=== PATIENT | female | born 1950 | race Native Hawaiian/Other Pacific Islander ===

== ENCOUNTER → 2017-07-26 | Outpatient (CLI) | payer OTHER, MEDICAID ==
[~2017-07-26] MED LIST: ALLOPURINOL 10100 M1 PO; COLCHICINE0.6 MG PO; COMBIVENT INH; ECOTRIN325 MG PO; HYDROXYZINE HCL10 M1 PO; HYDROXYZINE HCL25 M1 PO; INDOMETHACIN 2525 MG PO; LASIX 40 MG TAB40 M2 PO; LIPITOR 20 MG T20 M1 PO; LISINOPRIL20 MG PO; METFORMIN HCL500 MG PO; PROZAC10 MG PO; PROZAC20 MG PO; TOPAMAX 25 MG T25 M1 PO
== END ==
LOC: M.CT 07-19 08:27
DX: I70.0 Atherosclerosis of aorta (principal); I73.9 Peripheral vascular disease, unspecified; K43.9 Ventral hernia without obstruction or gangrene

== ENCOUNTER 2017-08-09 15:20 | Inpatient (IN) | payer OTHER, MEDICAID ==
[~2017-08-09] VITALS: Ht 172.7 cm; Wt 164.2 kg
[2017-08-09 15:25] VITALS: BP 140/84
[2017-08-09] MEDS ORDERED: COMBIVENT INH (15:35)
[2017-08-09] MEDS ORDERED: LISINOPRIL20 MG PO (15:36)
[2017-08-09] MEDS ORDERED: LASIX 40 MG TAB40 M2 PO (15:36)
[2017-08-09] MEDS ORDERED: ALLOPURINOL 10100 M1 PO (15:36)
[2017-08-09] MEDS ORDERED: INDOMETHACIN 2525 MG PO (15:37)
[2017-08-09] MEDS ORDERED: COLCHICINE0.6 MG PO (15:37)
[2017-08-09] MEDS ORDERED: PROZAC10 MG PO (15:38)
[2017-08-09] MEDS ORDERED: ECOTRIN325 MG PO (15:38)
[2017-08-09] MEDS ORDERED: PROZAC20 MG PO (15:38)
[2017-08-09] MEDS ORDERED: TOPAMAX 25 MG T25 M1 PO (15:39)
[2017-08-09] MEDS ORDERED: HYDROXYZINE HCL10 M1 PO (15:39)
[2017-08-09] MEDS ORDERED: METFORMIN HCL500 MG PO (15:40)
[2017-08-09 16:03] LABS: ABSOLUTE BASOPHILS 0.1 thou/uL (0.0-0.2); ABSOLUTE EOSINOPHILS 0.2 thou/uL (0.0-0.7); ABSOLUTE LYMPHOCYTES 2.6 thou/uL (0.8-5.3); ABSOLUTE MONOCYTES 0.9 thou/uL (0.0-1.2); ABSOLUTE NEUTROPHILS 5.5 thou/uL (1.6-8.1); BASOPHILS 0.9 %; EOSINOPHILS 1.8 %; HEMATOCRIT 43.5 % (37.0-47.0); MCH 32.2 pg (26.0-34.0); MCHC 34.4 g/dL (28.0-37.0); MCV 93.6 fL (80.0-100.0); MONOCYTES 10.1 %; MPV 7.7 fl. (7.2-11.1); NUCLEATED RBCS 0 /100WBC; PLATELET COUNT* 231 thou/uL (150-400); POLYS 59.2 %; RBC 4.64 mil/uL (4.20-5.00); RDW-CV 13.9 % (10.5-14.5); WBC 9.3 thou/uL (4.0-11.0)
[2017-08-09 16:14] LABS: ANION GAP 11 mmol/L (7-16); BUN 17 mg/dL (7-18); CALCIUM 8.9 mg/dL (8.5-10.1); CHLORIDE 104 mmol/L (98-107); CO2 23 mmol/L (21-32); CREATININE 1.4 mg/dL (0.6-1.3); GLUCOSE 75 mg/dL (70-99); POTASSIUM 3.7 mmol/L (3.5-5.1); SODIUM 138 mmol/L (136-145)
[2017-08-09 16:14] LABS: APTT 28.8 Seconds (25.0-31.3); INR 1.1; PROTIME 10.3 Seconds (9.20-11.50)
[2017-08-09 16:36] LABS: ALBUMIN 3.4 g/dL (3.4-5.0); ALKALINE PHOSPHATASE 55 U/L (46-116); CK-MB MASS 1.9 ng/mL (<0.5-3.6); LIPASE 134 U/L (73-393); NT-PRO BRAIN NAT PEPTIDE 158 pg/mL (<300); SGOT 20 U/L (15-37); SGPT 26 U/L (30-65); TOTAL BILIRUBIN 0.4 mg/dL (<0.1-1.0); TOTAL PROTEIN 7.5 g/dL (6.4-8.2); TROPONIN-I LEVEL <0.06 ng/mL (<0.06)
[2017-08-09 20:51] VITALS: BP 126/68
--- NOTE | 2017-08-09 20:54 | NUR ---
PATIENT ARRIVES TO UNIT VIA CART TRANSFER OF 1 NS INFUSING WIDE OPEN PATIENT IS AMBULATORY ABLE TO TRANSFER TO BED WITH STANDBY ASSIST.
[2017-08-09 21:00] VITALS: BP 137/79
[2017-08-10] VITALS (7 sets, daily range): BP systolic 96–141; BP diastolic 59–73
--- NOTE | 2017-08-10 06:12 | NUR ---
ASSUMED CARE OF PATIENT AT 2100 THE PATIENT REMAINS SR-SB LOW 50'S TO 60'S ON THE MONITOR O2 SAT MAINTAINED ON 2L NC NOT UTILIZED AT HOME CONTINUED TO BE UP WITH STANDBY ASSIST OF 1 ET CANE WHILE FLUIDS INFUSED UPON COMPLETION OF FLUIDS UP BRP STEADY WITH CANE MEDICATIONS RECONCILED NIGHT UNEVENTFUL PATIENT RESTED WELL DENYING PAIN OR CONCERNS SAFETY INTERVENTIONS CONTINUE BED LOWERED WHEELS LOCKED CALL LIGHT IN REACH SIDE RAILS UP REPORT TO BE GIVEN TO ONCOMING ALEJANDRA
--- NOTE | 2017-08-10 08:00 | NUR ---
ASSUMED CARE OF PT ASSESSED AND DOCUMENTED. PT IS ON CARDIAC MONITER TRACING SR. SHE IS A&O WITH NO C/O PAIN. PT IS ON ROOM AIR WITH CLEAR LUNGS. BED IS IN LOW POSITION CALL LIGHT IS IN REACH. WM.
--- NOTE | 2017-08-10 10:11 | EKG ---
[place] [address] ELECTROCARDIOGRAM REPORT Name: MARTINE SHEN Room: [address] IN [facility].#: [id number] Admission: 08/09/17 Attend Phys: Laly Ackerman MD Discharge: 08/10/17 Date of : 52 Report #: [id number] THIS REPORT FOR: //name// [facility] ED Test Date: 2017-08-09 Test Time: 15:30:01 Pat Name: MARTINE LINTON Department: Room: Gender: F Scorer Single: Ron GILMORE : 1950 Requested By: Gideon Graham Order Number: [id number] : Mamadou Kimbrough Measurements Intervals [place] Rate: 75 P: 38 [place]: 177 QRS: 39 QRSD: 96 T: 30 QT: 377 QTc: 421 Interpretive Statements Sinus rhythm Baseline wander in lead(s) V1 No previous ECG available for comparison Electronically Signed On 08-10-2017 10:11:34 CDT by Mamadou Kimbrough [email or web address] <ELECTRONICALLY SIGNED> By: Gracie Kimbrough MD, [facility] 08/10/17 1011 1530 1530 Gracie Kimbrough MD, [facility] /EPI
--- NOTE | 2017-08-10 10:12 | EKG ---
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
--- NOTE | 2017-08-10 18:27 | NUR ---
PT HAS BEEN D/C'D TO HOME. ALL CONSULTS OK WITH D/C. D/C'D IV AND CARDIAC MONITER. EDUCATION GIVEN RE FOLLOW-UPS. MEDICATIONS, AND DR ORDERS. ALL BELONGINGS PACKED UP AND LEFT WITH PT ACCOMPANIED BY STAFF AND SON.
== END 2017-08-10 18:35 | disposition still patient (30) | DRG 189 ==
LOC: M.ERS 15:20 → M.2W 19:58 → M.TBA-ER 19:58 → M.2W 19:58
PROVIDERS: Emergency Medicine; ADMIT Internal Medicine
DX: J96.01 Acute respiratory failure with hypoxia (principal); R07.89 Other chest pain; I10 Essential (primary) hypertension; Z98.891 History of uterine scar from previous surgery; M10.9 Gout, unspecified; E11.9 Type 2 diabetes mellitus without complications; G47.33 Obstructive sleep apnea (adult) (pediatric); F41.9 Anxiety disorder, unspecified; Z79.899 Other long term (current) drug therapy; Z79.82 Long term (current) use of aspirin; Z79.4 Long term (current) use of insulin; Z88.8 Allergy status to other drugs, medicaments and biological substances; Z88.0 Allergy status to penicillin; Z91.041 Radiographic dye allergy status

== ENCOUNTER 2017-10-31 07:37 | Outpatient (CLI) | payer OTHER, MEDICAID ==
[2017-10-31] VITALS (9 sets, daily range): BP systolic 101–122; BP diastolic 59–76
[~2017-10-31] VITALS: Ht 172.7 cm; Wt 136.1 kg
[~2017-10-31 07:37] MED LIST changes: -HYDROXYZINE HCL25 M1 PO; -LIPITOR 20 MG T20 M1 PO
[2017-10-31 08:47] LABS: ANION GAP 11 mmol/L (7-16); BUN 16 mg/dL (7-18); CALCIUM 9.2 mg/dL (8.5-10.1); CHLORIDE 105 mmol/L (98-107); CO2 25 mmol/L (21-32); CREATININE 1.1 mg/dL (0.6-1.3); GLUCOSE 116 mg/dL (70-99); POTASSIUM 3.8 mmol/L (3.5-5.1); SODIUM 141 mmol/L (136-145)
[2017-10-31 08:51] LABS: ALBUMIN 3.2 g/dL (3.4-5.0); ALKALINE PHOSPHATASE 61 U/L (46-116); CHOLESTEROL 129 mg/dL (<200); HDL CHOLESTEROL 55 mg/dL (>40); LDL CHOLESTEROL 49 mg/dL (<100); SERUM ASSESSMENT Clear; SGOT 20 U/L (15-37); SGPT 24 U/L (30-65); TC:HDL 2.3 Ratio (Not establshd); TOTAL BILIRUBIN 0.5 mg/dL (<0.1-1.0); TOTAL PROTEIN 7.7 g/dL (6.4-8.2); TRIGLYCERIDE 127 mg/dL (<150); VLDL 25 mg/dL (<40)
[2017-10-31] MEDS ORDERED: COMBIVENT INH (08:57)
[2017-10-31] MEDS ORDERED: METFORMIN HCL500 MG PO (08:58)
[2017-10-31] MEDS ORDERED: ECOTRIN325 MG PO (08:58)
[2017-10-31] MEDS ORDERED: LASIX 40 MG TAB40 M2 PO (08:58)
[2017-10-31] MEDS ORDERED: PROZAC20 MG PO (08:59)
[2017-10-31] MEDS ORDERED: TOPAMAX 25 MG T25 M1 PO (08:59)
[2017-10-31] MEDS ORDERED: ALLOPURINOL 10100 M1 PO (09:00)
[2017-10-31] MEDS ORDERED: LISINOPRIL20 MG PO (09:00)
[2017-10-31 09:01] LABS: HEMATOCRIT 43.5 % (37.0-47.0); HEMOGLOBIN 14.6 gm/dL (12.0-15.0); MCH 31.6 pg (26.0-34.0); MCHC 33.5 g/dL (28.0-37.0); MCV 94.3 fL (80.0-100.0); MPV 7.7 fl. (7.2-11.1); RBC 4.62 mil/uL (4.20-5.00); RDW-CV 14.1 % (10.5-14.5); WBC 9.3 thou/uL (4.0-11.0)
[2017-10-31] MEDS ORDERED: HYDROXYZINE HCL25 M1 PO (09:02)
[2017-10-31] MEDS ORDERED: LIPITOR 20 MG T20 M1 PO (09:02)
[2017-10-31] MEDS ORDERED: INDOMETHACIN 2525 MG PO (09:02)
[2017-10-31] MEDS ORDERED: COLCHICINE0.6 MG PO (09:03)
[2017-10-31 09:08] LABS: APTT 29.2 Seconds (25.0-31.3); PROTIME 10.1 Seconds (9.20-11.50)
--- NOTE | 2017-10-31 15:22 | EKG ---
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
--- NOTE | 2017-11-01 10:37 | CARD ---
[address] [address] CARDIAC CATH REPORT Name: MARTINE SHEN [address] [id number] Admission: 10/31/17 Attend Phys: Warner Dunaway MD Discharge: Date of : 52 Report #: [id number] THIS REPORT FOR: //name// APPROVED REPORT Study performed: 10/31/2017 09:04:21 Patient Details Patient Status: Out-Patient Room #: The patient is a 67 year-old female Event Personnel Gary Benz Logistics Officer, Catarina Prado RN Internal Carver, Ethan Nevarez (R) Monitor, Velia Masters RTR Scrub Procedures Performed Art Access - R femoral artery* Left Heart Cath w/or w/o Coronaries [id number] [facility] , Left Ventriculogram Indication Positive stress test Risk Factors Obesity, Hypercholesterolemia Procedure Narrative The patient was brought electively to the Cardiac Catheterization Laboratory and was prepped and draped in a sterile manner. The right femoral was infiltrated with 2% Lidocaine subcutaneous anesthesia. A Lyman 6 FR sheath was inserted into the right femoral artery. Coronary angiography was performed using coronary diagnostic catheters. The right coronary system was accessed and visualized with a Diagnostic 6fr JR 4 catheter. The left coronary system was accessed and visualized with a Diagnostic 6fr JL 4 catheter. The left ventricle was accessed and visualized with a Diagnostic 6fr Pigtail catheter. Left ventricular/Aortic Valve gradient assessed via catheter pullback. Left ventriculogram was performed in HENLEY projection. Pre-demployment femoral angiogram was performed . Closure device was deployed with a 6 Fr Angioseal STS 6Fr. Intraoperative Conscious Sedation Sedation start time: 09:55 Case end Time: 11:10 Fentanyl 100 mcg Vers[place] 2 [place] [address] CARDIAC CATH REPORT Name: MILTON ROYERMARTINE Room: [address]#: [id number] Admission: 10/31/17 Attend Phys: Warner Dunaway MD Discharge: Date of : 52 Report #: [id number] Fluoro Time: 7.1 minutes Dose: DAP [id number] cGycm2 1457.11 mGy Contrast Type and Amount: Visipaque 110 ml Coronary Angiography The patient's coronary anatomy is right dominant. Diagnostic Cath Left Main 0% narrowing LAD Aneurysmal dilatation of the proximal and mid LAD with 0% narrowing of this vessel Circumflex Aneurysmal dilatation of the proximal and mid circumflex with 0% narrowing noted Right Coronary Large dominant vessel with aneurysmal dilatation of the proximal mid and distal portion with 0% narrowing noted Hemodynamics The aortic pressure is 100/65 mmHg with a mean of mmHg. The left ventricular pressure is 117/0 mmHg with a mean of mmHg. The left ventricular end diastolic pressure is 13 mmHg. Pullback from the left ventricle to the aorta revealed no gradient across the aortic valve. Conclusion #1 atherosclerotic coronary artery characterized by the following: A aneurysmal dilatation of the proximal and mid LAD B aneurysmal dilatation of the proximal and mid circumflex C aneurysmal dilatation the proximal mid and distal right coronary artery, this being a dominant vessel D no significant stenosis of the left main LAD circumflex and right coronary arteries #2 normal left ventricular systolic function, estimate ejection fraction being 60% #3 normal left-sided hemodynamic study. Recommendations Cardiac Risk Reduction [place] [address] CARDIAC CATH REPORT Name: MARTINE SHEN Room: [address] M[address]R.#: [id number] Admission: 10/31/17 Attend Phys: Warner Dunaway MD Discharge: Date of : 52 Report #: [id number] Diagnostic Cath Approved by: Gary Benz MD Date/Time: 11/01/17 at 1036 hrs. <ELECTRONICALLY SIGNED> By: Gary Benz MD, FACC 11/01/17 1037 1037 1037Jojonathan Benz MD, FAC /INF
--- NOTE | 2017-11-13 16:11 | H ---
[place] [address] HISTORY AND PHYSICAL Name: MILTON LINTONMARTINE Lauren Room: [facility] You#: [id number] Admission: 10/31/17 Attend Phys: Warner Dunaway MD Discharge: 10/31/17 Date of : 52 Report #: [id number] THIS REPORT FOR: //name// CC: Warner Craig DATE OF SERVICE: 10/31/2017 HISTORY OF PRESENT ILLNESS: The patient is a pleasant middle-aged female with dyspnea on exertion. She has a number of risk factors for coronary artery disease including dyslipidemia, diabetes, hypertension and weight excess. Recent nuclear stress test suggested inducible lateral ischemia. MEDICINES: Have included aspirin, allopurinol, atorvastatin, colchicine, fluoxetine, furosemide, hydroxyzine, indomethacin, Combivent, lisinopril and metformin. PHYSICAL EXAMINATION: GENERAL: Demonstrates an overweight, middle-aged female. VITAL SIGNS: Blood pressure is 130/85, pulse rate is 74, respirations are 18 per minute. CHEST: Clear. CARDIOVASCULAR: Reveals normal first and second heart sounds. ABDOMEN: Obese. EXTREMITIES: Reveal mild edema with intact pulses. IMPRESSION: 1. Dyspnea on exertion. 2. Abnormal nuclear stress test. 3. Hypertension. 4. Hyperlipidemia. 5. Exogenous obesity. 6. Type 2 diabetes. RECOMMENDATIONS: Given the aforementioned dyspnea on exertion, the risk factor profile and abnormal stress test, I would recommend proceeding with cardiac catheterization to define current coronary anatomy and prospects for subsequent therapy. <ELECTRONICALLY SIGNED> By: Gary Benz MD, FACC 11/13/17 1611 1359 1551Jojonathan Benz MD, FAC /nt
== END 2017-10-31 15:52 | disposition home or self-care (01) ==
LOC: M.CL 07:37 → M.TBA-CV 11:29 → M.CL 15:52
PROVIDERS: Internal Medicine; Internal Medicine Cardiovascular Disease
DX: I25.10 Atherosclerotic heart disease of native coronary artery without angina pectoris (principal); I10 Essential (primary) hypertension; E78.00 Pure hypercholesterolemia, unspecified; M10.9 Gout, unspecified; F32.9 Major depressive disorder, single episode, unspecified; F41.9 Anxiety disorder, unspecified; E66.09 Other obesity due to excess calories; Z87.442 Personal history of urinary calculi; Z98.890 Other specified postprocedural states; Z79.899 Other long term (current) drug therapy; Z88.0 Allergy status to penicillin; Z91.041 Radiographic dye allergy status; Z88.8 Allergy status to other drugs, medicaments and biological substances; Z79.82 Long term (current) use of aspirin; Z79.01 Long term (current) use of anticoagulants

== ENCOUNTER → 2018-05-16 | Outpatient (CLI) | payer OTHER, MEDICAID ==
[~2018-05-16] MED LIST changes: +HYDROXYZINE HCL25 M1 PO; +LIPITOR 20 MG T20 M1 PO
[2018-05-16 13:05] LABS: CHOLESTEROL 123 mg/dL (<200); HDL CHOLESTEROL 54 mg/dL (>40); LDL CHOLESTEROL 43 mg/dL (<100); SERUM ASSESSMENT Clear; TC:HDL 2.3 Ratio (Not establshd); TRIGLYCERIDE 132 mg/dL (<150); VLDL 26 mg/dL (<40)
== END ==
LOC: M.LAB 12:31
PROVIDERS: Internal Medicine Cardiovascular Disease
DX: E78.2 Mixed hyperlipidemia (principal)

== ENCOUNTER → 2018-05-22 | Outpatient (CLI) | payer OTHER, MEDICAID | LOC: M.RAD 08:15 | DX: Z12.31 Encounter for screening mammogram for malignant neoplasm of breast (principal); E28.39 Other primary ovarian failure; Z78.0 Asymptomatic menopausal state ==

== ENCOUNTER → 2019-02-06 | Day surgery (SDC) | payer OTHER, MEDICAID ==
[~2019-02-06] MED LIST changes: +ALLOPURINOL 30300 M1 PO; +ASA81BEC PO; +FLUOXETINE HCL20 M1 PO; +KLOR-CON 1010 MEQ PO; +MOBIC7.5 MG PO; +PLAVIX 75 MG TA75 MG PO
--- NOTE | ~2019-02-06 | PROC ---
[address] [address] PROCEDURE REPORT Name: MARTINE SHEN Room: [facility]#: [id number] Admission: 02/06/19 Attend Phys: Slade James MD Discharge: Date of : 52 Report #: [id number] THIS REPORT FOR: //name// For GI report, please see the Provation report in Perceptive 7 content. By: 0652Medical Records Staff DURGA /STEVEN
[2019-02-06 09:25] LABS: HEMATOCRIT 45.7 % (37.0-47.0); HEMOGLOBIN 15.9 gm/dL (12.0-15.0); MCH 32.2 pg (26.0-34.0); MCHC 34.7 g/dL (28.0-37.0); MCV 92.9 fL (80.0-100.0); MPV 7.2 fl. (7.2-11.1); RBC 4.92 mil/uL (4.20-5.00)
[2019-02-06 09:33] LABS: CALCIUM 9.4 mg/dL (8.5-10.1); POTASSIUM 3.7 mmol/L (3.5-5.1)
[2019-02-06 09:37] LABS: ALBUMIN 3.8 g/dL (3.4-5.0); TOTAL BILIRUBIN 0.7 mg/dL (<0.1-1.0)
--- NOTE | 2019-02-06 14:37 | EKG ---
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: : 1950 Requested By: Slade James Order Number: [id number] Reading MD: Gary Benz Measurements Intervals [place] Rate: 78 P: 5 [place]: 186 QRS: 22 QRSD: 99 T: 20 QT: 395 QTc: 450 Interpretive Statements Sinus rhythm Inferior infarct, old posssible Baseline wander in lead(s) II,III,aVR,aVF Compared to ECG 10/31/2017 09:04:01 Myocardial infarct finding now present Electronically Signed On 02-06-2019 14:37:35 CDT by Gary Benz [email or web address] <ELECTRONICALLY SIGNED> By: Gary Benz MD, [facility] 02/06/19 1437 0 0 Gary Benz MD, [facility] /EPI
--- NOTE | 2019-02-11 13:07 | PATH ---
[facility] [address] [place] [address] PATHOLOGY RPT PROCEDURE Name: MARTINE SHEN [id number] Admission: 02/06/19 Date of : 52 Discharge: Report #: [id number] Path Case #: [id number] [facility] Accession Number: [id number] . 01 Material submitted: . PART A: stomach - GASTRIC BIOPSY PART B: cecum - CECAL POLYP . 01 Clinical history: . GERD, dysphacia, screening colon R/O H pyloric . 02 Diagnosis: A. Gastric biopsy: - Mild nonspecific chronic gastritis, negative for Helicobacter pylori organisms and dysplasia. . B. Cecal polyp: - Tubular adenoma, negative for high-grade dysplasia. (YORDAN:janelle; 02/10/2019) . . Special stain on A: H. pylori immuno. QMS 02/10/2019 1127 Local . 02 Electronically signed: . Bronson Lucas MD, Pathologist NPI- [id number] . 01 Gross description: . A. Received in formalin labeled "Martine Shen, gastric biopsy R/O H. pylori," is a segment of chaves-brown soft tissue measuring 0.4 x 0.3 x 0.3 cm in greatest dimensions. The specimen is submitted entirely in cassette A1. . B. Received in formalin labeled "Martine Shen, cecal polyp," is a segment of chaves-brown soft tissue measuring 0.5 x 0.3 x 0.2 cm in greatest dimensions. The specimen is submitted entirely in cassette B1. ([facility]; 02/09/2019) XDC/XDC 02/09/2019 09 Local . 02 Pathologist provided ICD-10: K29.50, D12.0 . 02 CPT . 995504, 073986, F60312 Specimen Comment: A courtesy copy of this report has been sent to [phone] Specimen Comment: [address], [place] [address] PATHOLOGY RPT PROCEDURE Name: MARTINE SHEN Room: [facility].#: [id number] Admission: 02/06/19 Date of : 52 Discharge: Report #: [id number] Path Case #: [id number] Specimen Comment: Report sent to DR Cory ALEXUS / DR PETERSEN Specimen Comment: A duplicate report has been generated due to demographic updates. Performed at: 01 [facility] [address], [place], [place] [address] MD Yvan Crystal MD Phone: [phone] Performed at: 02 [facility] [place] [address], [place], [place] [id number] MD Bronson Lucas MD Phone: [phone]
== END | disposition home or self-care (01) ==
LOC: M.SUR 08:48
PROVIDERS: Internal Medicine Gastroenterology
DX: Z12.11 Encounter for screening for malignant neoplasm of colon (principal); D12.0 Benign neoplasm of cecum; K57.30 Diverticulosis of large intestine without perforation or abscess without bleeding; K22.2 Esophageal obstruction; K25.9 Gastric ulcer, unspecified as acute or chronic, without hemorrhage or perforation; K21.9 Gastro-esophageal reflux disease without esophagitis; K29.50 Unspecified chronic gastritis without bleeding; K64.4 Residual hemorrhoidal skin tags; R13.19 Other dysphagia; K21.0 Gastro-esophageal reflux disease with esophagitis; I25.10 Atherosclerotic heart disease of native coronary artery without angina pectoris; I11.0 Hypertensive heart disease with heart failure; I50.9 Heart failure, unspecified; E11.9 Type 2 diabetes mellitus without complications; E78.5 Hyperlipidemia, unspecified; M10.9 Gout, unspecified; Z98.890 Other specified postprocedural states; Z91.041 Radiographic dye allergy status; Z88.0 Allergy status to penicillin; Z88.8 Allergy status to other drugs, medicaments and biological substances; Z79.899 Other long term (current) drug therapy; Z79.82 Long term (current) use of aspirin

== ENCOUNTER → 2019-07-06 | Outpatient (CLI) | payer OTHER, MEDICAID | LOC: M.RAD 08:29 | DX: Z12.31 Encounter for screening mammogram for malignant neoplasm of breast (principal) ==

== ENCOUNTER → 2019-10-23 | Outpatient (CLI) | payer OTHER, MEDICAID | LOC: M.ULTRA 10-16 09:00 | PROVIDERS: ATTEND Family Medicine | DX: N28.1 Cyst of kidney, acquired (principal); I10 Essential (primary) hypertension; N28.9 Disorder of kidney and ureter, unspecified ==

== ENCOUNTER → 2020-01-14 | Outpatient (CLI) | payer OTHER, MEDICAID | LOC: M.NUC 07:23 | PROVIDERS: ATTEND Nurse Practitioner Adult Health | DX: R10.13 Epigastric pain (principal); R68.81 Early satiety ==

== ENCOUNTER → 2020-01-20 | Outpatient (CLI) | payer OTHER, MEDICAID | LOC: M.LAB 10:05 | PROVIDERS: ATTEND Internal Medicine Gastroenterology | DX: Z01.812 Encounter for preprocedural laboratory examination (principal); Z20.828 Contact with and (suspected) exposure to other viral communicable diseases; K20.80 Other esophagitis without bleeding ==

== ENCOUNTER → 2020-01-25 | Day surgery (SDC) | payer OTHER, MEDICAID ==
--- NOTE | ~2020-01-25 | PROC ---
[address] [address] PROCEDURE REPORT Name: MARTINE SHEN Room: [facility].#: [id number] Admission: 01/25/20 Attend Phys: Slade James MD Discharge: Date of : 52 Report #: [id number] THIS REPORT FOR: //name// cc: Anup Craig Vincent R. DO ~ THIS REPORT FOR: //name// For GI report, please see the Provation report in Perceptive 7 content. By: 0652Medical Records Staff DURGA /STEVEN
[2020-01-25 08:38] LABS: HEMOGLOBIN 15.1 gm/dL (12.0-15.0); MCH 31.3 pg (26.0-34.0); MCHC 33.4 g/dL (28.0-37.0); MCV 93.5 fL (80.0-100.0); MPV 7.5 fl. (7.2-11.1); RBC 4.81 mil/uL (4.20-5.00); RDW-CV 14.4 % (10.5-14.5); WBC 8.3 thou/uL (4.0-11.0)
[2020-01-25 08:45] LABS: CALCIUM 9.3 mg/dL (8.5-10.1); POTASSIUM 3.6 mmol/L (3.5-5.1)
--- NOTE | 2020-01-25 09:58 | EKG ---
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
== END | disposition home or self-care (01) ==
LOC: M.SUR
PROVIDERS: ATTEND Internal Medicine Gastroenterology
DX: K21.00 Gastro-esophageal reflux disease with esophagitis, without bleeding (principal); I25.10 Atherosclerotic heart disease of native coronary artery without angina pectoris; E11.9 Type 2 diabetes mellitus without complications; E78.5 Hyperlipidemia, unspecified; I11.0 Hypertensive heart disease with heart failure; I50.9 Heart failure, unspecified; M10.9 Gout, unspecified; R68.81 Early satiety; Z79.899 Other long term (current) drug therapy; Z98.890 Other specified postprocedural states

== ENCOUNTER → 2020-03-28 | Outpatient (CLI) | payer OTHER, MEDICAID ==
[2020-03-28 09:03] LABS: ABSOLUTE BASOPHILS 0.1 thou/uL (0.0-0.2); ABSOLUTE EOSINOPHILS 0.1 thou/uL (0.0-0.7); ABSOLUTE LYMPHOCYTES 2.2 thou/uL (0.8-5.3); ABSOLUTE MONOCYTES 0.5 thou/uL (0.0-1.2); ABSOLUTE NEUTROPHILS 4.8 thou/uL (1.6-8.1); BASOPHILS 0.7 %; EOSINOPHILS 1.7 %; HEMATOCRIT 42.7 % (37.0-47.0); HEMOGLOBIN 14.3 gm/dL (12.0-15.0); LYMPHOCYTES 28.4 %; MCH 31.1 pg (26.0-34.0); MCHC 33.5 g/dL (28.0-37.0); MCV 92.9 fL (80.0-100.0); MONOCYTES 6.8 %; MPV 7.2 fl. (7.2-11.1); NUCLEATED RBCS 0 /100WBC; PLATELET COUNT* 233 thou/uL (150-400); POLYS 62.4 %; WBC 7.8 thou/uL (4.0-11.0)
[2020-03-28 09:09] LABS: URINE BLOOD 1+ (Negative); URINE CLARITY CLEAR; URINE COLOR YELLOW; URINE GLUCOSE-RANDOM NEGATIVE (Negative); URINE KETONES NEGATIVE (Negative); URINE LEUKOCYTES-REFLEX TRACE (Negative); URINE NITRITE-REFLEX NEGATIVE (Negative); URINE PROTEIN NEGATIVE (Negative); URINE SPECIFIC GRAVITY 1.025 (1.005-1.030); URINE UROBILINOGEN 0.2 E.U./dl (0.2-1.0)
[2020-03-28 09:10] LABS: ICTOTEST (BILI CONFIRMATORY) Negative (Negative); URINE BILIRUBIN 1+ (Negative)
[2020-03-28 09:18] LABS: CASTS None Seen /LPF (None Seen); MUCUS 4-6 Moderate strn/LPF (None Seen); SQUAMOUS 4-10 Moderate /LPF (0-3); URINE RBC 0-2 Rare /HPF (0-2); URINE WBC-REFLEX 0-5 Rare /HPF (0-5)
[2020-03-28 09:19] LABS: ALBUMIN 3.4 g/dL (3.4-5.0); CREATININE 0.9 mg/dL (0.6-1.3); PHOSPHORUS* 3.2 mg/dL (2.5-4.9); POTASSIUM 3.8 mmol/L (3.5-5.1)
[2020-03-28 09:19] LABS: CRYSTALS None Seen /LPF (None Seen)
[2020-03-30 09:07] LABS: GLOMERULR BASEM MEMBRN AB 3 units (0-20)
== END ==
LOC: M.LAB 03-22 15:41
PROVIDERS: ATTEND Internal Medicine Nephrology
DX: N28.1 Cyst of kidney, acquired (principal); N17.9 Acute kidney failure, unspecified; N28.89 Other specified disorders of kidney and ureter

== ENCOUNTER 2020-04-23 11:53 | Emergency (ER) | payer OTHER, MEDICAID ==
[~2020-04-23] VITALS: Ht 167.6 cm; Wt 149.7 kg
[2020-04-23] MEDS ORDERED: ECOTRIN325 MG PO (12:04)
[2020-04-23] MEDS ORDERED: OMEPRAZOLE 20 M20 M1 PO (12:04)
[2020-04-23] MEDS ORDERED: MITIGARE0.6 MG PO (12:04)
[2020-04-23] MEDS ORDERED: HYDROCODON-ACE1 EAC7 PO (13:29)
[2020-04-23] MEDS ORDERED: FLEXERIL PO (13:29)
[2020-04-23 13:39] VITALS: BP 132/70
--- NOTE | 2020-04-24 09:18 | EKG ---
[place] [address] ELECTROCARDIOGRAM REPORT Name: MARTINE SHEN Room: [facility]#: [id number] Admission: 04/23/20 Attend Phys: Discharge: 04/23/20 Date of : 52 Date of Service: 04/23/20 1216 Report #: [id number] THIS REPORT FOR: //name// [facility] ED Test Date: 2020-04-23 Test Time: 12:16:43 Pat Name: MARTINE LINTON Department: Room: Gender: Venetian Blind Washer: [facility] : 1950 Requested By: Alessandra Dodge Order Number: [id number] MD: Warner Dunaway Measurements Intervals [place] Rate: 72 P: 8 NE: 179 QRS: 44 QRSD: 106 T: 43 QT: 408 QTc: 447 Interpretive Statements Sinus rhythm Low voltage, precordial leads Compared to ECG 01/25/2020 08:51:59 Low QRS voltage now present Electronically Signed On 04-24-2020 9:18:50 NUTRITION TECHNICIAN by Warner Dunaway [email or web address] <ELECTRONICALLY SIGNED> By: Warner Dunaway MD, FACC 04/24/20 0918 1216 1216 Warner Dunaway MD, FAC /EPI
== END 2020-04-23 13:40 | disposition home or self-care (01) ==
LOC: M.ERS 11:53
DX: S22.31XA Fracture of one rib, right side, initial encounter for closed fracture (principal); M10.9 Gout, unspecified; I10 Essential (primary) hypertension; Z79.82 Long term (current) use of aspirin; Z79.01 Long term (current) use of anticoagulants; Z79.899 Other long term (current) drug therapy; Z88.0 Allergy status to penicillin; Z88.8 Allergy status to other drugs, medicaments and biological substances; Z91.041 Radiographic dye allergy status; W01.0XXA Fall on same level from slipping, tripping and stumbling without subsequent striking against object, initial encounter; Y93.89 Activity, other specified; Y92.89 Other specified places as the place of occurrence of the external cause; Y99.8 Other external cause status